=== PATIENT | male | born 1995 | race African-American/Black ===

== ENCOUNTER 2018-10-01 13:24 | Emergency (ER) | payer OTHER, SELFPAY ==
[2018-10-01] MEDS ORDERED: Lidocaine 1% PF 5 ML VIAL ONE (14:17)
[2018-10-01] MEDS ORDERED: Bacitracin 1 PK ONE (14:18)
== END 2018-10-01 15:34 | disposition home or self-care (01) ==
LOC: ERS 13:24
DX: L02.31 Cutaneous abscess of buttock (principal)
CPT/HCPCS: 10060; J2001

== ENCOUNTER 2018-10-03 15:11 | Emergency (ER) | payer SELFPAY | END 2018-10-03 15:35 | disposition home or self-care (01) | LOC: ERS 15:11 | DX: Z48.817 Encounter for surgical aftercare following surgery on the skin and subcutaneous tissue (principal); Z87.891 Personal history of nicotine dependence | CPT/HCPCS: 99282 ==